=== PATIENT | male | born 1985 | race Hispanic/Latino ===

== ENCOUNTER 2023-06-25 11:18 | Emergency (ER) | payer SELFPAY ==
[2023-06-25] MEDS ORDERED: TDAP (DIPHTH,PERTUSS(ACELL),TET VAC) 0.5 ML VIAL IMVAC ONE (11:52)
--- NOTE | 2023-06-25 12:20 | RAD REPORT ---
EXAM DESCRIPTION: RAD - Hand Right 3 View - 06/25/2023 11:56 am CLINICAL HISTORY: PAIN COMPARISON: No comparisons TECHNIQUE: Right hand, 3 views. FINDINGS: No fracture is identified. Soft tissue irregularity at the tuft of the third digit distal phalanx. There is no dislocation or periosteal reaction noted. No foreign body or other soft tissue abnormalit y. IMPRESSION: Soft tissue irregularity at the tuft of the third digit distal phalanx without underlyin g acute osseous abnormality. .
--- NOTE | 2023-06-25 12:35 | ER ---
Nurse's Notes [facility] Name: Sean Álvarez Age: 37 yrs Sex: Male : 1985 Arrival Date: 06/25/2023 Time: 11:18 Bed 3 Private MD: Diagnosis: Fingertip avulsion to right third digit Presentation: 06/25 11:31 Chief complaint: Patient states: 30 MIN GLOVE TURNER AND FORMER AUTOMATIC R THIRD FINGER DISTAL LACERATION. bp Coronavirus screen: At this time, the client does not indicate any symptoms associated with coronavirus-19. Ebola Screen: No symptoms or risks identified at this time. Initial Sepsis Screen: Does the patient meet any 2 criteria? No. Patient's initial sepsis screen is negative. Does the patient have a suspected source of infection? No. Patient's initial sepsis screen is negative. Risk Assessment: Do you want to hurt yourself or someone else? Patient reports no desire to harm self or others. Onset of symptoms was June 25, 2023 at 11:00. 11:31 Method Of Arrival: Ambulatory bp 11:31 Acuity: MIKE 3 bp Triage Assessment: 11:38 General: Appears in no apparent distress. Behavior is calm, cooperative, appropriate bp for age. Pain: Complains of pain in right middle finger. EENT: No deficits noted. Neuro: No deficits noted. Cardiovascular: No deficits noted. Respiratory: No deficits noted. GI: No signs and/or symptoms were reported involving the gastrointestinal system. : No signs and/or symptoms were reported regarding the genitourinary system. Derm: No deficits noted. Musculoskeletal: Range of motion: intact in all extremities. Injury Description: Laceration sustained to right middle finger. Historical: - Allergies: 11:38 No Known Allergies; bp - Home Meds: 11:38 None [Active]; bp - PMHx: 11:38 None; bp - Immunization history:: Adult Immunizations unknown, Last tetanus immunization: unknown. - Social history:: Smoking status: Patient denies any tobacco usage or history of. - Family history:: not pertinent. Screenin:47 [facility] ED Fall Risk Assessment (Adult) History of falling in the last 3 months, ap3 including since admission No falls in past 3 months (0 pts). Abuse screen: Denies threats or abuse. Nutritional screening: No deficits noted. Tuberculosis screening: No symptoms or risk factors identified. Assessment: 11:47 General: Appears in no apparent distress. Pain: Complains of pain in right middle ap3 finger. Neuro: Level of Consciousness is awake, alert, obeys commands, Oriented to person, place, time, situation. Cardiovascular: Patient's skin is warm and dry. Respiratory: Airway is patent Respiratory effort is even, unlabored, Respiratory pattern is regular, symmetrical. Derm: Wound noted right middle finger. Vital Signs: 11:31 BP 140 / 92; Pulse 74; Resp 18; Temp 98; Pulse Ox 98% ; bp 11:34 BP 140 / 92; Pulse 69; Pulse Ox 98% ; ap3 ED Course: 11:19 Patient arrived in ED. rg4 11:25 James Brown MD is Attending Physician. rt 11:34 Laila Ramirez, LUIS is Primary Nurse. ap3 11:38 Triage completed. bp 11:38 Arm band placed on. bp 11:47 Patient has correct armband on for positive identification. Bed in low position. Call ap3 light in reach. Side rails up X 1. Pulse ox on. NIBP on. 11:48 Provided Education on: Medication prior to administration. ap3 11:48 Dressings: ABD pad X 1; right middle finger Kerlix X 1; right middle finger. Irrigation ap3 of laceration on right middle finger irrigated with normal saline Hibiclens solution Patient tolerated well. 11:48 No provider procedures requiring assistance completed. ap3 11:58 Hand Right 3 View XRAY In Process Unspecified. EDMS 12:43 Patient did not have IV access during this emergency room visit. ld1 Administered Medications: 11:46 Drug: Tetanus-Diphtheria Toxoid IM Adult 0.5 ml {Home Service Advisor: [employer] ap3 Exp: 11/26/2023. Lot #: [id number]. } Route: IM; Site: right deltoid; Medication: 11:47 Vaccine Information Statement (VIS) provided today. Questions and/or concerns ap3 addressed. VIS edition date: June 14, 2021. Outcome: 12:34 Discharge ordered by . rt 12:42 Discharged to home ambulatory, with family. ld1 12:42 Condition: stable 12:42 Discharge instructions given to patient, family, Instructed on discharge instructions, follow up and referral plans. medication usage, Demonstrated understanding of instructions, follow-up care, medications, Prescriptions given X 1. 12:43 Patient left the ED. ld1 Signatures: Dispatcher [employer] Carolyn Powell rg4 Praveen Quinones RN RN bp Laila Ramirez RN RN ap3 Karolina Smith RN RN ld1 James Brown MD MD rt
--- NOTE | 2023-06-25 12:35 | EDPHYS ---
Physician Documentation [facility] Name: Sean Álvarez Age: 37 yrs Sex: Male : 1985 Arrival Date: 06/25/2023 Time: 11:18 Bed 3 Private MD: ED Physician James Brown HPI: 06/25 11:41 This 37 yrs old Male presents to ER via Ambulatory with complaints of Finger Injury. rt 11:41 Patient presents to the ED with an injury to the right third finger. The patient had a rt cut with a lawnmower. Denies any significant bleeding or any significant pain. States that he is not up-to-date on his tetanus immunization, denies other acute complaints at this time, symptoms are mild in severity, no other aggravating or alleviating factors.. Historical: - Allergies: 11:38 No Known Allergies; bp - Home Meds: 11:38 None [Active]; bp - PMHx: 11:38 None; bp - Immunization history:: Adult Immunizations unknown, Last tetanus immunization: unknown. - Social history:: Smoking status: Patient denies any tobacco usage or history of. - Family history:: not pertinent. ROS: 11:41 Constitutional: Negative for fever, chills, and weight loss, Cardiovascular: Negative rt for chest pain, palpitations, and edema, Respiratory: Negative for shortness of breath, cough, wheezing, and pleuritic chest pain, Abdomen/GI: Negative for abdominal pain, nausea, vomiting, diarrhea, and constipation, Neuro: Negative for headache, weakness, numbness, tingling, and seizure, Psych: Negative for depression, anxiety, suicide ideation, homicidal ideation, and hallucinations. 11:41 MS/extremity: Positive for laceration, Negative for Bleeding. Exam: 11:41 Constitutional: This is a well developed, well nourished patient who is awake, alert, rt and in no acute distress. Head/Face: Normocephalic, atraumatic. Chest/axilla: Normal chest wall appearance and motion. Nontender with no deformity. No lesions are appreciated. Cardiovascular: Regular rate and rhythm with a normal S1 and S2. No gallops, murmurs, or rubs. Normal PMI, no JVD. No pulse deficits. Respiratory: Lungs have equal breath sounds bilaterally, clear to auscultation and percussion. No rales, rhonchi or wheezes noted. No increased work of breathing, no retractions or nasal flaring. Abdomen/GI: Soft, non-tender, with normal bowel sounds. No distension or tympany. No guarding or rebound. No evidence of tenderness throughout. Neuro: Awake and alert, GCS 15, oriented to person, place, time, and situation. Cranial nerves II-XII grossly intact. Motor strength 5/5 in all extremities. Sensory grossly intact. Cerebellar exam normal. Normal gait. Psych: Awake, alert, with orientation to person, place and time. Behavior, mood, and affect are within normal limits. 11:41 Musculoskeletal/extremity: There is a superficial laceration to the right distal third digit. It removes a few millimeters of nail, appears to be mostly an avulsion, deeper structures are not involved. Seems to be partial-thickness through the skin, no active bleeding. Good learning and development associate strength, sensation intact. Vital Signs: 11:31 BP 140 / 92; Pulse 74; Resp 18; Temp 98; Pulse Ox 98% ; bp 11:34 BP 140 / 92; Pulse 69; Pulse Ox 98% ; ap3 MDM: 11:26 Patient medically screened. rt 12:36 Differential diagnosis: Tuft fracture, laceration, avulsion. Data reviewed: vital rt signs, nurses notes, radiologic studies. Independent interpretation of the following test(s) in the Emergency Department X-Ray: My interpretation is No fracture seen on interpretation of x-ray images. Counseling: I had a detailed discussion with the patient and/or guardian regarding the historical points, exam findings, and any diagnostic results supporting the discharge/admit diagnosis, radiology results, the need for outpatient follow up. ED course: Wound cleansed in the ED, mild fingertip avulsion, not requiring suture repair. No fracture identified, the wound does not appear to be contaminated, will start antibiotics for prevention, will allow to heal by secondary intention, patient is comfortable with this plan, return precautions for any signs of infection were discussed with the patient.. 06/25 11:32 Order name: Hand Right 3 View XRAY; Complete Time: 12:29 rt 06/25 11:32 Order name: Wound Care; Complete Time: 11:41 rt Administered Medications: 11:46 Drug: Tetanus-Diphtheria Toxoid IM Adult 0.5 ml {Anesthesiology Physician: [employer] ([employer]). ap3 Exp: 11/26/2023. Lot #: [id number]. } Route: IM; Site: right deltoid; Disposition Summary: 06/25/23 12:34 Discharge Ordered Location: Home rt Problem: new rt Symptoms: have improved rt Condition: Stable rt Diagnosis - Fingertip avulsion to right third digit rt Followup: rt - With: Private Physician - When: 5 - 6 days - Reason: Discharge Instructions: - Discharge Summary Sheet rt - Nonsutured Laceration Care rt Forms: - Medication Reconciliation Form rt - Thank You Letter rt - Antibiotic Education rt - Prescription Opioid Use rt - Patient Portal Instructions rt - Leadership Thank You Letter rt Prescriptions: - cephalexin 500 mg Oral capsule - take 2 capsule by ORAL route 3 times per day for 7 days; 21 capsule; Refills: rt 0, Product Selection Permitted Signatures: Dispatcher [employer] Praveen Mireles RN RN bp Laila Ramirez RN RN ap3 James Brown MD MD rt
[2023-06-25 12:48] VITALS: BP 140/92; TEMP 98; O2SAT 98
== END 2023-06-25 12:43 | disposition home or self-care (01) ==
LOC: ER 11:18
DX: S61.302A Unspecified open wound of right middle finger with damage to nail, initial encounter (principal); Z23 Encounter for immunization
CPT/HCPCS: 90471; 99284